=== PATIENT | female | born 1995 | race Caucasian/White ===

== ENCOUNTER 2022-04-15 22:42 | Emergency (ER) | payer OTHER ==
[~2022-04-15] VITALS: Ht 175.3 cm; Wt 86.2 kg
== END 2022-04-16 03:02 | disposition home or self-care (01) ==
LOC: ED 22:42 → EDBD 22:43 → ED 04-16 03:02
DX: F10.129 Alcohol abuse with intoxication, unspecified (principal); Y90.7 Blood alcohol level of 200-239 mg/100 ml
CPT/HCPCS: 36415; 80053; 84703; 85025; 96374; 99284-25; A9270; G0480; J2405; J7030